=== PATIENT | male | born 1995 | race Hispanic/Latino ===

== ENCOUNTER 2022-07-31 00:11 | Emergency (ER) | payer MEDICAID, OTHER ==
[~2022-07-31] VITALS: Ht 175.3 cm; Wt 98.4 kg
[2022-07-31] MEDS ORDERED: KETOROLAC 60 MG VIAL (30MG/ML) IM ONE (02:30)
[2022-07-31 03:35] VITALS: BP 147/85
== END 2022-07-31 03:36 | disposition home or self-care (01) ==
LOC: EEVIPCON 00:11 → EDH 00:11
DX: S93.491A Sprain of other ligament of right ankle, initial encounter (principal); W50.2XXA Accidental twist by another person, initial encounter; Y93.89 Activity, other specified; Y92.89 Other specified places as the place of occurrence of the external cause; Y99.8 Other external cause status; J45.909 Unspecified asthma, uncomplicated
CPT/HCPCS: 99283; 73610; 96372; J1885

== ENCOUNTER 2022-07-31 20:27 | Emergency (ER) | payer OTHER ==
[~2022-07-31] VITALS: Ht 175.3 cm; Wt 74.4 kg
[2022-07-31 20:35] VITALS: BP 140/79
== END 2022-07-31 21:20 | disposition home or self-care (01) ==
LOC: EDH 20:27
DX: S06.0XAA Concussion with loss of consciousness status unknown, initial encounter (principal); S09.8XXA Other specified injuries of head, initial encounter; J45.909 Unspecified asthma, uncomplicated; W18.2XXA Fall in (into) shower or empty bathtub, initial encounter; Y93.E1 Activity, personal bathing and showering; Y92.148 Other place in prison as the place of occurrence of the external cause; Y99.8 Other external cause status
CPT/HCPCS: 70450; 93005

== ENCOUNTER 2022-08-02 20:22 | Emergency (ER) | payer OTHER ==
[~2022-08-02] VITALS: Ht 175.3 cm; Wt 98.4 kg
[2022-08-02] MEDS ORDERED: ALBUTEROL INHALER 90MCG/INH IH ONE (20:30)
[2022-08-02] MEDS ORDERED: ALBU90AE2 IH (20:45)
[2022-08-02 21:26] VITALS: BP 146/84
[2022-08-02] MEDS ORDERED: ALBUTEROL INHALER 90MCG/INH IH SCH (21:30)
== END 2022-08-02 21:28 | disposition home or self-care (01) ==
LOC: EDH 20:22
DX: J45.909 Unspecified asthma, uncomplicated (principal)